=== PATIENT | male | born 1995 | race African-American/Black ===

== ENCOUNTER 2021-10-21 17:48 | Emergency (ER) | payer OTHER, SELFPAY ==
--- NOTE | ~2021-10-21 | XR_ITS ---
EXAM: XR foot RT min 3V DATE: 10/21/2021 18:14 HISTORY: PAIN 1st MTP joint Rt foot, tripped playing basketball today . COMPARISON: None available. FINDINGS: Normal mineralization. No fracture or dislocation. No lytic or blastic lesion. Joint space s are maintained. No erosion or periosteal change. Soft tissues within normal limits. IMPRESSION: No acute osseous finding in the right foot. Reviewed, dictated and finalized at location K.
[2021-10-21 17:56] VITALS: BP 137/78; PULSE 84; RESP 16; TEMP 37.7; O2SAT 100
--- NOTE | 2021-10-21 17:58 | ED.LOWEXIN ---
HPI - Extremity Injury (Lower) General Chief Complaint: Extremity Injury, Lower Stated Complaint: injured toe Time Seen by Provider: 10/21/21 18:15 Source: patient and RN notes reviewed Mode of arrival: ambulatory Limitations: no limitations History of Present Illness HPI Narrative: 26-year-old male presents concern for injury to the base of the first toe of the right foot. He reports he was playing basketball with shoes on, he hit his foot on another player. Reports pain to the PIP joint of the first digit. He reports when he walks he can feel a painful popping sensation at that joint. He denies decreased range of motion, strength, sensation of the digit complaint: foot injury Related Data Home Medications Medication Instructions Recorded Confirmed acyclovir 400 mg tablet mg 10/21/21 Allergies Allergy/AdvReac Type Severity Reaction Status Date / Time No Known Allergies Allergy Verified 10/21/21 17:56 Review of Systems Review of Systems: CONSTITUTIONAL: Denies malaise, chills, sweats, or fever. SKIN: Denies rash or itching, open skin, laceration, abrasion, redness, warmth, swelling. MUSCULOSKELETAL: Reports pain to the first digit of the right NEUROLOGIC: Denies numbness, weakness All systems reviewed & are unremarkable except as noted in HPI and below PMFSH Comments At time of signature, agree with nursing past medical, surgical, social and family history. There is no relevant family history pertinent to the presenting complaint Exam Narrative: GENERAL: Well-appearing, well-nourished, and in no acute distress. HEAD: Normocephalic, atraumatic. EYES: PERRLA, conjunctivae clear NECK: Supple. CHEST: Speaks in full sentences. No respiratory distress. HEART: Regular rate and rhythm. Normal and equal peripheral pulses. EXTREMITIES: First digit of the right foot has normal strength and sensation, grossly normal range of motion. No edema, very minimal ecchymosis to the lateral joint 5/5 strength with digit flexion and extension. Normal sensation with sensitivity to light touch and pain. Mild tenderness to the PIP joint. No open wounds, no skin tenting, no devitalized tissue or atrophy, no trophic changes, no obvious deformity, alignment normal, nearby joints and structures intact. Distal pulses palpable and equal bilaterally, skin warm, dry, pink. Capillary refill less than 3 seconds. SKIN: Warm, dry, no rash. NEURO: Alert and oriented x3. PSYCH: Normal mood and affect Course Course Emergency Course: Patient is aware of diagnosis, understands and agrees to treatment plan. Anticipatory guidance given. Patient agrees to follow-up as directed and is aware of reasons to seek care at the emergency department. Portions of this record may have been created with voice recognition software Level of Care: Express Care Visit Vital Signs Vital signs: Reviewed. MDM - Extremity Injury (Lower) MDM Narrative Medical decision making narrative: Patients injury and pain is consistent with musculoskeletal etiology. No signs of neurological or vascular compromise on exam. Compartments and tissues are soft without signs of compartment syndrome. Pain is felt appropriate for further evaluation on an outpatient basis. Critical Care Time Critical Care Time Critical Care Time: No Discharge Plan Discharge Clinical Impression: Turf toe of right foot Patient Disposition: Home, Self-Care Condition: Stable Instructions: Foot Sprain (ED) Additional Instructions: Avoid activities that cause pain until the pain subsides. Ice to the area 20-30 minutes 4-6 times a day Elevate above heart Tom tape your toes, consider wearing an Josep wrap on your foot for the next week or until pain improves. Tylenol for lesser pain Ibuprofen regularly for the next 2-3 days for the inflammation Follow up with your orthopedics or primary care provider if the condition is not improving within 1 week. If the condition worsens with numbne
== END 2021-10-21 18:28 | disposition home or self-care (01) ==
PROVIDERS: Emergency Provider Nurse Practitioner; PCP Internal Medicine
DX: S93.501A Unspecified sprain of right great toe, initial encounter (principal); W51.XXXA Accidental striking against or bumped into by another person, initial encounter; Y93.67 Activity, basketball
CPT/HCPCS: 73630; 99213; G0463